=== PATIENT | male | born 1975 | race Caucasian/White ===

== ENCOUNTER 2017-12-05 08:27 | Observation (INO) | payer OTHER ==
[2017-12-05 08:29] VITALS: BMI 27.4
[2017-12-05] MEDS ORDERED: Sodium Chloride 0.9% 1,000 ML IV STA (08:55)
--- NOTE | 2017-12-05 08:55 | ED PDOC ---
HPI: Chest Pain Time Seen by Provider: 12/05/17 08:32 Chief Complaint (Nursing): Chest Pain History Per: Patient Onset/Duration Of Symptoms: Days (1) Current Symptoms Are (Timing): Still Present Severity: Mild Pain Scale Rating Of: 2 Quality: Aching Modifying Factors: None Exacerbating Factors: None Additional Complaint(s): Chest pain assoc with cocaine and ETOH ingestion. Has been drinking and using drugs x 4 days. Denies syncope or SOB Past Medical History Vital Signs: Last Vital Signs Temp 98.8 F 12/05/17 08:29 Pulse 93 H 12/05/17 08:29 Resp 16 12/05/17 08:29 BP 137/92 H 12/05/17 08:52 Pulse Ox 98 12/05/17 08:55 - Medical History PMH: No Chronic Diseases - Family History Family History: States: Unknown Family Hx - Allergies Allergies/Adverse Reactions: Allergies Allergy/AdvReac Type Severity Reaction Status Date / Time Unobtainable Allergy Verified 12/05/17 08:38 Review of Systems ROS Statement: Except As Marked, All Systems Reviewed And Found Negative Cardiovascular: Positive for: Chest Pain Physical Exam - Reviewed Nursing Documentation Reviewed: Yes Vital Signs Reviewed: Yes - Physical Exam Appears: Positive for: Non-toxic, No Acute Distress Head Exam: Positive for: ATRAUMATIC, NORMAL INSPECTION, NORMOCEPHALIC Skin: Positive for: Normal Color, Warm, DRY Eye Exam: Positive for: EOMI, Normal appearance, PERRL ENT: Positive for: Normal ENT Inspection Neck: Positive for: Normal, Painless ROM Cardiovascular/Chest: Positive for: Regular Rate, Rhythm Respiratory: Positive for: CNT, Normal Breath Sounds Gastrointestinal/Abdominal: Positive for: Normal Exam, Bowel Sounds, Soft Back: Positive for: Normal Inspection Extremity: Positive for: Normal ROM Neurologic/Psych: Positive for: Alert, Oriented - Laboratory Results Result Diagrams: 12/05/17 09:21 12/05/17 09:21 - ECG O2 Sat by Pulse Oximetry: 98 Disposition - Clinical Impression Clinical Impression: Chest pain, Cocaine abuse - Patient ED Disposition Is Patient to be Admitted: Yes - Disposition Disposition Time: 10:24 Condition: FAIR Forms: [facility] (Lao) - Pt Status Changed To: Hospital Disposition Of: Observation - POA Present On Arrival: None
[2017-12-05 09:29] LABS: BASO # 0.1 K/uL (0.0-0.2); BASO % 0.9 % (0.0-2.0); EOS # 0.1 K/uL (0.0-0.7); EOS % 0.9 % (0.0-4.0); LYMPH # 1.8 K/uL (1.0-4.3); LYMPH % 31.1 % (20.0-40.0); MEAN CELL VOLUME 85.3 fl (80.0-94.0); MEAN CORPUSCULAR HEMOGLOBIN 29.4 pg (27.0-31.0); MEAN CORPUSCULAR HGB CONC 34.4 g/dL (33.0-37.0); MEAN PLATELET VOLUME 8.5 fl (7.2-11.7); MONO # 0.3 K/uL (0.0-0.8); MONO % 5.7 % (0.0-10.0); NEUT # 3.5 K/uL (1.8-7.0); NEUT % 61.4 % (50.0-75.0); NRBC % 0.1 % (0.0-0.0); RBC 4.42 Mil/uL (4.40-5.90); RED CELL DISTRIBUTION WIDTH 15.2 % (11.5-14.5); WHITE BLOOD COUNT 5.8 K/uL (4.8-10.8)
[2017-12-05 09:40] LABS: ALBUMIN 4.6 g/dL (3.5-5.0); ALT/SGPT 117 U/L (21-72); AST/SGOT 95 U/L (17-59); BLOOD UREA NITROGEN 15 mg/dl (9-20); CALCIUM 8.9 mg/dL (8.4-10.2); GFR AFRICAN-AMERICAN > 60; GFR NON-AFRICAN AMERICAN > 60
[2017-12-05 09:43] LABS: ALB/GLOB RATIO 1.2 (1.0-2.1)
[2017-12-05 09:50] LABS: BARBITURATES, UR NEGATIVE (NEGATIVE); BENZODIAZEPINES, UR NEGATIVE (NEGATIVE); OPIATES, UR NEGATIVE (NEGATIVE); PHENCYCLIDINE, UR NEGATIVE (NEGATIVE)
--- NOTE | 2017-12-05 10:32 | RAD ---
HISTORY: chest pain COMPARISON: No prior. TECHNIQUE: Chest PA and lateral FINDINGS: LUNGS: No active pulmonary disease. PLEURA: No significant pleural effusion identified. No pneumothorax apparent. CARDIOVASCULAR: Normal. OSSEOUS STRUCTURES: No significant abnormalities. VISUALIZED UPPER ABDOMEN: Normal. OTHER FINDINGS: None. IMPRESSION: No active disease.
--- NOTE | 2017-12-05 11:18 | CP.PCM.HP ---
History of Present Illness - History of Present Illness History of Present Illness: CC: CHEST PAIN HPI: 42 year old male no known past medical history, admitting to one year of consistent ETOH and Cocaine abuse presents to the ER today after a 4 day "goldsmith " of constant drinking and cocaine use, and subsequently developing moderate worsening non radiating chest pain. Patient admits to being depressed and wishes to stop drinking and using cocaine. He currently has no thoughts of harming himself or anyone around him. No acute ST T wave changes on EKG, troponin neg x1. UDS + cocaine, ETOH 49. Patient also complained of reflux. HD stable, NAD. ROS: Per HPI, all other systems reviewed and neg PMH: denies PSH: denies FH: denies SH: admits to heavy ETOH and cocaine abuse NKDA Vitals Reviewed GEN: WDWN, ALERT, COOPERATIVE HEENT: NCAT, PERRL, EOMI HEART: RRR, +S1S2, NO MRG LUNG: CTAB, NO WRR ABD: SOFT, NT, ND, NO HSM, NO MASSES EXT: NORMAL PEDAL PULSES, GOOD CAPILLARY REFILL NEURO: AAOX3, STRENGTH EQUAL BILATERAL UPPER AND LOWER EXTREMITIES SKIN: WARM, DRY PSYCH: NORMAL MOOD, NORMAL AFFECT LABS Most Recent Lab Values WBC 5.8 K/uL (4.8-10.8) 12/05/17 09:21 RBC 4.42 Mil/uL (4.40-5.90) 12/05/17 09:21 Hgb 13.0 g/dL (12.0-18.0) 12/05/17 09:21 Hct 37.7 % (35.0-51.0) 12/05/17 09:21 MCV 85.3 fl (80.0-94.0) 12/05/17 09:21 MCH 29.4 pg (27.0-31.0) 12/05/17 09:21 MCHC 34.4 g/dL (33.0-37.0) 12/05/17 09:21 RDW 15.2 % (11.5-14.5) H 12/05/17 09:21 Plt Count 225 K/uL (130-400) 12/05/17 09:21 MPV 8.5 fl (7.2-11.7) 12/05/17 09:21 Neut % (Auto) 61.4 % (50.0-75.0) 12/05/17 09:21 Lymph % (Auto) 31.1 % (20.0-40.0) 12/05/17 09:21 [place] % (Auto) 5.7 % (0.0-10.0) 12/05/17 09:21 Eos % (Auto) 0.9 % (0.0-4.0) 12/05/17 09:21 Baso % (Auto) 0.9 % (0.0-2.0) 12/05/17 09:21 Neut # 3.5 K/uL (1.8-7.0) 12/05/17 09:21 Lymph # 1.8 K/uL (1.0-4.3) 12/05/17 09:21 [place] # 0.3 K/uL (0.0-0.8) 12/05/17 09:21 Eos # 0.1 K/uL (0.0-0.7) 12/05/17 09:21 Baso # 0.1 K/uL (0.0-0.2) 12/05/17 09:21 Sodium 137 mmol/l (132-148) 12/05/17 09:21 Potassium 4.1 MMOL/L (3.6-5.0) 12/05/17 09:21 Chloride 97 mmol/L (98-107) L 12/05/17 09:21 Carbon Dioxide 24 mmol/L (22-30) 12/05/17 09:21 Anion Gap 20 (10-20) 12/05/17 09:21 BUN 15 mg/dl (9-20) 12/05/17 09:21 Creatinine 0.8 mg/dl (0.8-1.5) 12/05/17 09:21 Est GFR ( Amer) > 60 12/05/17 09:21 Est GFR (Non-Af Amer) > 60 12/05/17 09:21 Random Glucose 100 mg/dL (75-110) 12/05/17 09:21 Calcium 8.9 mg/dL (8.4-10.2) 12/05/17 09:21 Total Bilirubin 0.4 mg/dl (0.2-1.3) 01/16/18 09:21 AST 95 U/L (17-59) H 12/05/17 09:21 ALT 117 U/L (21-72) H 12/05/17 09:21 Alkaline Phosphatase 68 U/L (38-126) 12/05/17 09:21 Troponin I 0.0150 ng/mL (0.00-0.120) 12/05/17 09:21 Total Protein 8.5 G/DL (6.3-8.2) H 12/05/17 09:21 Albumin 4.6 g/dL (3.5-5.0) 12/05/17 09:21 Globulin 4.0 gm/dL (2.2-3.9) H 12/05/17 09:21 Albumin/Globulin Ratio 1.2 (1.0-2.1) 12/05/17 09:21 Urine Opiates Screen Negative (NEGATIVE) 12/05/17 09:17 Urine Methadone Screen Negative (NEGATIVE) 12/05/17 09:17 Ur Barbiturates Screen Negative (NEGATIVE) 12/05/17 09:17 Ur Phencyclidine Scrn Negative (NEGATIVE) 12/05/17 09:17 Ur Amphetamines Screen Negative (NEGATIVE) 12/05/17 09:17 U Benzodiazepines Scrn Negative (NEGATIVE) 12/05/17 09:17 U Oth Cocaine Metabols Positive (NEGATIVE) H 12/05/17 09:17 U Cannabinoids Screen Negative (NEGATIVE) 12/05/17 09:17 Alcohol, Quantitative 49 mg/dl (0-10) H 12/05/17 09:21 IMAGING STUDIES EKG NSR rate 94 QTc 452, no acute ST T wave changes, no evidence of acute ischemia or infarct MEDICATIONS Pantoprazole [Protonix EC Tab] 40 mg PO DAILY chlordiazePOXIDE [Librium] 10 mg PO Q8 PRN Aspirin [Aspirin Chewable] 81 mg PO DAILY Atorvastatin [Lipitor] 20 mg PO DAILY Enoxaparin [Lovenox] 40 mg SC DAILY ASSESSMENT AND PLAN 42 year old male no known past medical history, admitting to one year of consistent ETOH and Cocaine abuse presents to the ER today after a 4 day "goldsmith " of constant drinking and cocaine use, and subsequently developing moderate worsening non radiating chest pain. Patient admits to being depressed and wishes to stop drinking and using cocaine. He currently has no thoughts of harming himself or anyone around him. No acute ST T wave changes on EKG, troponin neg x1. UDS + cocaine, ETOH 49. Pt also complains of reflux. HD stable , NAD. 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 cont ASA, statin AVOID beta blockade 2/2 cocaine use QTc prolongation QTc 452 avoid QT prolongation agents ETOH ABUSE COCAINE ABUSE POLYSUBSTANCE ABUSE Librium 10 mg Q8 HOURS PRN withdrawal sx Folic acid and Thiamine daily MVI daily Outpatient Psychiatry referral upon discharge to [facility] REFLUX SYMPTOMS initiate Protonix daily for 2 weeks to complete course of PPI VTE ppx Lovenox Present on Admission - Present on Admission Any Indicators Present on Admission: No Past Patient History - Past Social History Smoking Status: Never Smoked - PSYCHIATRIC Hx Substance Use: Yes - SURGICAL HISTORY Hx Surgeries: No Meds Allergies/Adverse Reactions: Allergies Allergy/AdvReac Type Severity Reaction Status Date / Time Unobtainable Allergy Verified 12/05/17 08:38 Results - Vital Signs Recent Vital Signs: Last Vital Signs Temp 98 F 12/05/17 10:40 Pulse 78 12/05/17 10:40 Resp 18 12/05/17 10:40 BP 137/92 H 12/05/17 10:40 Pulse Ox 100 12/05/17 10:40 - Labs Result Diagrams: 12/05/17 09:21 12/05/17 09:21 Labs: Laboratory Results - last 24 hr 12/05/17 12/05/17 12/05/17 09:17 09:21 09:21 WBC 5.8 RBC 4.42 Hgb 13.0 Hct 37.7 MCV 85.3 MCH 29.4 MCHC 34.4 RDW 15.2 H Plt Count 225 MPV 8.5 Neut % (Auto) 61.4 Lymph % (Auto) 31.1 [place] % (Auto) 5.7 Eos % (Auto) 0.9 Baso % (Auto) 0.9 Neut # 3.5 Lymph # 1.8 [place] # 0.3 Eos # 0.1 Baso # 0.1 Sodium 137 Potassium 4.1 Chloride 97 L Carbon Dioxide 24 Anion Gap 20 BUN 15 Creatinine 0.8 Est GFR ( Amer) > 60 Est GFR (Non-Af Amer) > 60 Random Glucose 100 Calcium 8.9 Total Bilirubin 0.4 AST 95 H ALT 117 H Alkaline Phosphatase 68 Troponin I 0.0150 Total Protein 8.5 H Albumin 4.6 Globulin 4.0 H Albumin/Globulin Ratio 1.2 Urine Opiates Screen Negative Urine Methadone Screen Negative Ur Barbiturates Screen Negative Ur Phencyclidine Scrn Negative Ur Amphetamines Screen Negative U Benzodiazepines Scrn Negative U Oth Cocaine Metabols Positive H U Cannabinoids Screen Negative Alcohol, Quantitative 49 H
[2017-12-05] MEDS ORDERED: Pantoprazole 40 mg EC Tab PO ONE (12:21)
[2017-12-05] MEDS: Pantoprazole 40 mg EC Tab PO SCH (12:22)
[2017-12-05] MEDS ORDERED: Pneumococcal 23-Valent Vaccine IM ONE (20:07)
[2017-12-05] MEDS ORDERED: Influenza Vaccine 18yr & older 0.5 ML/45 MCG SYR IM ONE (20:07)
--- NOTE | 2017-12-05 21:37 | CARD ---
APPROVED REPORT EKG Measurement Heart [id number] NC 124P29 [id number] <Conclusion> Normal sinus rhythm with sinus arrhythmia Normal ECG
[2017-12-06 08:20] VITALS: BP 146/94; PULSE 73; RESP 20; TEMP 97.3; O2SAT 98
[2017-12-06] MEDS ORDERED: Multivitamin With Minerals Tab PO SCH (09:00)
[2017-12-06] MEDS ORDERED: Enoxaparin 40 mg Syringe SC SCH (09:00)
[2017-12-06] MEDS ORDERED: Omega-3-Acid Ethyl Esters 1 GM Cap PO SCH (09:00)
[2017-12-06] MEDS: Pantoprazole 40 mg EC Tab PO SCH (09:02)
--- NOTE | 2017-12-06 10:18 | CP.PCM.DIS ---
Provider - Provider Date of Admission: 12/05/17 10:25 Attending physician: Courtney Valdes DO Time Spent in preparation of Discharge (in minutes): 25 Diagnosis - Discharge Diagnosis (1) Chest pain Status: Resolved (2) Cocaine abuse Status: Acute Hospital Course - Lab Results Lab Results: Most Recent Lab Values WBC 5.8 K/uL (4.8-10.8) 12/05/17 09:21 RBC 4.42 Mil/uL (4.40-5.90) 12/05/17 09:21 Hgb 13.0 g/dL (12.0-18.0) 12/05/17 09:21 Hct 37.7 % (35.0-51.0) 12/05/17 09:21 MCV 85.3 fl (80.0-94.0) 12/05/17 09:21 MCH 29.4 pg (27.0-31.0) 12/05/17 09:21 MCHC 34.4 g/dL (33.0-37.0) 12/05/17 09:21 RDW 15.2 % (11.5-14.5) H 12/05/17 09:21 Plt Count 225 K/uL (130-400) 12/05/17 09:21 MPV 8.5 fl (7.2-11.7) 12/05/17 09:21 Neut % (Auto) 61.4 % (50.0-75.0) 12/05/17 09:21 Lymph % (Auto) 31.1 % (20.0-40.0) 12/05/17 09:21 [place] % (Auto) 5.7 % (0.0-10.0) 12/05/17 09:21 Eos % (Auto) 0.9 % (0.0-4.0) 12/05/17 09:21 Baso % (Auto) 0.9 % (0.0-2.0) 12/05/17 09:21 Neut # 3.5 K/uL (1.8-7.0) 12/05/17 09:21 Lymph # 1.8 K/uL (1.0-4.3) 12/05/17 09:21 [place] # 0.3 K/uL (0.0-0.8) 12/05/17 09:21 Eos # 0.1 K/uL (0.0-0.7) 12/05/17 09:21 Baso # 0.1 K/uL (0.0-0.2) 12/05/17 09:21 Sodium 137 mmol/l (132-148) 12/05/17 09:21 Potassium 4.1 MMOL/L (3.6-5.0) 12/05/17 09:21 Chloride 97 mmol/L (98-107) L 12/05/17 09:21 Carbon Dioxide 24 mmol/L (22-30) 12/05/17 09:21 Anion Gap 20 (10-20) 12/05/17 09:21 BUN 15 mg/dl (9-20) 12/05/17 09:21 Creatinine 0.8 mg/dl (0.8-1.5) 12/05/17 09:21 Est GFR ( Amer) > 60 12/05/17 09:21 Est GFR (Non-Af Amer) > 60 12/05/17 09:21 Random Glucose 100 mg/dL (75-110) 12/05/17 09:21 Calcium 8.9 mg/dL (8.4-10.2) 12/05/17 09:21 Total Bilirubin 0.4 mg/dl (0.2-1.3) 12/05/17 09:21 AST 95 U/L (17-59) H 12/05/17 09:21 ALT 117 U/L (21-72) H 12/05/17 09:21 Alkaline Phosphatase 68 U/L (38-126) 12/05/17 09:21 Troponin I < 0.0120 ng/mL (0.00-0.120) 12/06/17 04:20 Total Protein 8.5 G/DL (6.3-8.2) H 12/05/17 09:21 Albumin 4.6 g/dL (3.5-5.0) 12/05/17 09:21 Globulin 4.0 gm/dL (2.2-3.9) H 12/05/17 09:21 Albumin/Globulin Ratio 1.2 (1.0-2.1) 12/05/17 09:21 Triglycerides 628 mg/DL (0-149) H 12/06/17 04:20 Cholesterol 190 mg/dL (0-199) 12/06/17 04:20 LDL Cholesterol Direct 67 mg/dL (0-129) 12/06/17 04:20 HDL Cholesterol 31 MG/DL (30-70) 12/06/17 04:20 TSH 3rd Generation 3.25 mIU/ML (0.46-4.68) 12/06/17 04:20 Urine Opiates Screen Negative (NEGATIVE) 12/05/17 09:17 Urine Methadone Screen Negative (NEGATIVE) 12/05/17 09:17 Ur Barbiturates Screen Negative (NEGATIVE) 12/05/17 09:17 Ur Phencyclidine Scrn Negative (NEGATIVE) 12/05/17 09:17 Ur Amphetamines Screen Negative (NEGATIVE) 12/05/17 09:17 U Benzodiazepines Scrn Negative (NEGATIVE) 12/05/17 09:17 U Oth Cocaine Metabols Positive (NEGATIVE) H 12/05/17 09:17 U Cannabinoids Screen Negative (NEGATIVE) 12/05/17 09:17 Alcohol, Quantitative 49 mg/dl (0-10) H 12/05/17 09:21 - Hospital Course Hospital Course: 42 year old male with no known PMH aside from alcohol and cocaine abuse admitted because of chest pain. There was no acute EKG changes and 3 sets of Troponins were negative. Patient was given 81mg of ASA and started on Fenofibrate and [place] 3 because of elevated Triglycerides. His chest pain has been relieved and patient was discharged in stable condition. Discharge Exam - Head Exam Head Exam: ATRAUMATIC, NORMAL INSPECTION, NORMOCEPHALIC - Eye Exam Eye Exam: Normal appearance - ENT Exam ENT Exam: Mucous Membranes Moist - Neck Exam Neck exam: Normal Inspection - Respiratory Exam Respiratory Exam: NORMAL BREATHING PATTERN. absent: Rales, Rhonchi, Wheezes - Cardiovascular Exam Cardiovascular Exam: REGULAR RHYTHM - GI/Abdominal Exam GI & Abdominal Exam: Soft. absent: Tenderness - Rectal Exam Rectal Exam: Deferred - Extremities Exam Extremities exam: normal inspection - Back Exam Back exam: absent: tenderness - Neurological Exam Neurological exam: Alert, Oriented x3 - Psychiatric Exam Psychiatric exam: Normal Affect - Skin Skin Exam: Dry, Intact Discharge Plan - Discharge Medications Prescriptions: Fenofibrate Nanocrystallized [Tricor] 48 mg PO DAILY #30 tablet [id number] Ethyl Esters 1 GM [Lovaza] 2 gm PO BID #60 sgl - Follow Up Plan Condition: FAIR Disposition: HOME/ ROUTINE Additional Instructions: follow up in [place]
--- NOTE | 2017-12-06 11:08 | CP.PCM.CON ---
History of Present Illness - History of Present Illness History of Present Illness: 42 year old male no known past medical history, admitting to one year of consistent ETOH and Cocaine abuse presents to the ER today after a 4 day "goldsmith" of constant drinking and cocaine use, and subsequently developing non radiating chest pain. Denies chest pain at present Troponin: neg EKG: normal Past Patient History - Past Social History Smoking Status: Current Some Days Smoker - MUSCULOSKELETAL/RHEUMATOLOGICAL Hx Falls: No - PSYCHIATRIC Hx Substance Use: Yes - SURGICAL HISTORY Hx Surgeries: No Meds Home Medications: Home Medication List Medication Instructions Recorded Confirmed Type Aspirin [Aspirin Chewable] 81 mg PO DAILY chew 12/06/17 Rx Fenofibrate Nanocrystallized 48 mg PO DAILY #30 tablet 12/06/17 Rx [Tricor] Fenofibrate [Tricor] 48 mg PO DAILY tab 12/06/17 Rx Multimineral/Multivitamin 1 tab PO DAILY tab 12/06/17 Rx [Therapeutic-M Tab] Vialw-5-Xqpg Ethyl Esters 1 GM 2 gm PO BID #60 sgl 12/06/17 Rx [Lovaza] Allergies/Adverse Reactions: Allergies Allergy/AdvReac Type Severity Reaction Status Date / Time Unobtainable Allergy Verified 12/05/17 08:38 - Medications Medications: Current Medications Aspirin (Aspirin Chewable) 81 mg PO DAILY [facility] Last Admin: 12/06/17 09:02 Dose: 81 mg Atorvastatin Calcium (Lipitor) 20 mg PO DAILY [facility] Last Admin: 12/06/17 09:03 Dose: 20 mg Chlordiazepoxide (Librium) 10 mg PO Q8 PRN PRN Reason: WITHDRAWAL SYMPTOMS Last Admin: 12/05/17 13:16 Dose: 10 mg Enoxaparin Sodium (Lovenox) 40 mg SC DAILY [facility] PRN Reason: Protocol Last Admin: 12/06/17 09:02 Dose: 40 mg Fenofibrate (Tricor) 48 mg PO DAILY [facility] Last Admin: 12/06/17 10:48 Dose: 48 mg Folic Acid (Folic Acid) 1 mg PO DAILY [facility] Last Admin: 12/06/17 09:02 Dose: 1 mg Lisinopril (Zestril) 10 mg PO DAILY [facility] Last Admin: 12/06/17 09:02 Dose: 10 mg Multivitamins/Minerals (Therapeutic-M Tab) 1 tab PO DAILY [facility] Last Admin: 12/06/17 09:02 Dose: 1 tab Tizwr-1-Kmhj Ethyl Esters (Lovaza) 2 gm PO BID [facility] Last Admin: 12/06/17 10:48 Dose: 2 gm Pantoprazole Sodium (Protonix Ec Tab) 40 mg PO DAILY [facility] Last Admin: 12/06/17 09:02 Dose: 40 mg Thiamine HCl (Vitamin B1 Tab) 100 mg PO DAILY [facility] Last Admin: 12/06/17 09:02 Dose: 100 mg Physical Exam - Respiratory Exam Respiratory Exam: NORMAL BREATHING PATTERN - Cardiovascular Exam Cardiovascular Exam: REGULAR RHYTHM Results - Vital Signs Recent Vital Signs: Last Vital Signs Temp 97.3 F L 12/06/17 08:18 Pulse 73 12/06/17 09:02 Resp 20 12/06/17 08:18 BP 146/94 H 12/06/17 09:02 Pulse Ox 98 12/06/17 08:18 - Labs Result Diagrams: 12/05/17 09:21 12/05/17 09:21 Labs: Laboratory Results - last 24 hr 12/05/17 12/05/17 12/06/17 20:00 20:58 04:20 Troponin I 0.0120 < 0.0120 Triglycerides 628 H Cholesterol 190 LDL Cholesterol Direct 67 HDL Cholesterol 31 TSH 3rd Generation 3.25 12/06/17 04:20 Troponin I < 0.0120 Triglycerides Cholesterol LDL Cholesterol Direct HDL Cholesterol TSH 3rd Generation Assessment & Plan (1) Cocaine abuse Status: Acute (2) Chest pain Assessment and Plan: non cardiac chest pain Status: Resolved
== END 2017-12-06 15:07 | disposition home or self-care (01) ==
LOC: H.ER 08:27 → H.ERHOLD 10:25 → H.TEL 12:40
PROVIDERS: ADMIT Student in an Organized Health Care Education/Training Program; ATTEND Student in an Organized Health Care Education/Training Program
DX: R07.89 Other chest pain (principal); F14.10 Cocaine abuse, uncomplicated; I45.81 Long QT syndrome; K21.9 Gastro-esophageal reflux disease without esophagitis; Y90.2 Blood alcohol level of 40-59 mg/100 ml; F17.200 Nicotine dependence, unspecified, uncomplicated; E78.1 Pure hyperglyceridemia; F10.10 Alcohol abuse, uncomplicated; Z23 Encounter for immunization
CPT/HCPCS: 36415; 71046; 80053; 80061; 80320; 80324; 80345; 80346; 80349; 80353; 80358; 80361; 83992; 84443; 84484; 85025; 90471; 90472; 90732; 93005; 99285; G0378; J1650; J7040; Q2035

== ENCOUNTER 2018-07-03 20:27 | Observation (INO) | payer MEDICAID, SELFPAY ==
[2018-07-03] MEDS ORDERED: Multivitamin (MVI) 10 ML, Thiamine 100 MG, Folic Acid 1 MG in Sodium Chloride 0.9% 1,00... IV ONE (20:52)
[2018-07-03] MEDS ORDERED: Sodium Chloride 0.9% 1,000 ML IV STA ×2 (20:54→23:25)
--- NOTE | 2018-07-03 21:04 | ED PDOC ---
HPI: Altered Mental Status Time Seen by Provider: 07/03/18 20:38 Chief Complaint (Nursing): Altered Mental Status Chief Complaint (Provider): altered mental status History Per: Patient, Family History/Exam Limitations: None Onset/Duration Of Symptoms: Days (2) Current Symptoms Are (Timing): Still Present Exacerbating Factor(s): Drug Use, Alcohol Use Additional Complaint(s): 43 y/o male brought in by EMS with mother at bedside for evaluation of altered mental status x 2 days. Mother states patient has been drinking every day for 2 weeks straight, and also has been using cocaine. Mother states patient has not been sleeping for the last few days due to the cocaine use. Mother states as of yesterday patient was not as active as his usual self when intoxicated, and was not recognizing people he knows. Patient intoxicated, HPI slightly limited due to current state. Past Medical History Reviewed: Historical Data, Nursing Documentation, Vital Signs Vital Signs: Last Vital Signs Temp 97.7 F 07/03/18 20:28 Pulse 144 H 07/03/18 20:28 Resp 16 07/03/18 20:28 BP 154/103 H 07/03/18 20:28 Pulse Ox 100 07/03/18 20:28 - Medical History PMH: No Chronic Diseases - Surgical History Surgical History: No Surg Hx - Family History Family History: States: No Known Family Hx - Living Arrangements Living Arrangements: With Family - Social History Current smoker - smoking cessation education provided: No Alcohol: > 2 Drinks/Day Drugs: Cocaine - Home Medications Home Medications: Ambulatory Orders Medication Instructions Recorded Aspirin [Aspirin Chewable] 81 mg PO DAILY chew 12/06/17 Fenofibrate Nanocrystallized 48 mg PO DAILY #30 tablet 12/06/17 [Tricor] Fenofibrate [Tricor] 48 mg PO DAILY tab 12/06/17 Multimineral/Multivitamin 1 tab PO DAILY tab 12/06/17 [Therapeutic-M Tab] [place]-2-Mwvv Ethyl Esters 1 GM 2 gm PO BID #60 sgl 12/06/17 [Lovaza] Unobtainable 07/04/18 - Allergies Allergies/Adverse Reactions: Allergies Allergy/AdvReac Type Severity Reaction Status Date / Time Unobtainable Allergy Verified 12/05/17 08:38 Review of Systems ROS Statement: Except As Marked, All Systems Reviewed And Found Negative Neurological: Positive for: Altered Mental Status Physical Exam - Reviewed Nursing Documentation Reviewed: Yes Vital Signs Reviewed: Yes - Physical Exam Appears: Positive for: Well, Non-toxic, No Acute Distress Head Exam: Positive for: ATRAUMATIC, NORMAL INSPECTION, NORMOCEPHALIC Skin: Positive for: Normal Color Eye Exam: Positive for: Normal appearance, EOMI, PERRL, Conjunctival injection ( b/l) ENT: Positive for: Normal ENT Inspection Cardiovascular/Chest: Positive for: Regular Rate, Rhythm Respiratory: Positive for: Normal Breath Sounds Gastrointestinal/Abdominal: Positive for: Normal Exam Back: Positive for: Normal Inspection Extremity: Positive for: Normal ROM Neurologic/Psych: Positive for: Alert, Oriented (x2) - Laboratory Results Result Diagrams: 07/03/18 21:42 07/04/18 07:37 - ECG ECG: Positive for: Viewed By Me (reviewed by ED attending) ECG Rhythm: Positive for: Sinus Tachycardia O2 Sat by Pulse Oximetry: 100 - Radiology X-Ray: Viewed By Me X-Ray Interpretation: Cardiomegaly - Progress ED Course And Treament: labs, urine, EKG, CT head 22:00 Patient agitated, attempting to remove IV. Security at bedside, Ativan IV given EXAM: CT Head Without Intravenous Contrast CLINICAL HISTORY: 43 years old, male; Signs and symptoms; Altered mental status/memory loss; Other : Substance abuse; Additional info: AMS, substance abuse TECHNIQUE: Axial computed tomography images of the head/brain without intravenous contrast. All CT scans at this facility use at least one of these dose optimization techniques: automated exposure control; mA and/or kV adjustment per patient size (includes targeted exams where dose is matched to clinical indication); or iterative reconstruction. Coronal and sagittal reformatted images were created and reviewed. COMPARISON: No relevant prior studies available. FINDINGS: Brain: Unremarkable. Ventricles: Unremarkable. Bones/joints: Unremarkable. No acute fracture. Soft tissues: Unremarkable. Sinuses: Unremarkable as visualized. Mastoid air cells: Unremarkable as visualized. IMPRESSION: No acute intracranial pathology or traumatic injury. 23:30 Patient sleeping; vitals stable on monitor 07/04/18 1:30 Patient awake, again trying to get out of bed and remove IV/cardiac leads. Haldol IM given 3:00 Patient sleeping; vitals stable 5:00 Patient awake, HR elevated 125's and tremors noted Case discussed with Dr. Rodriguez, hospitalist on-call for placement in observation for alcohol withdrawals, dehydration, tachycardia Disposition - Clinical Impression Clinical Impression: Tachycardia, Alcohol withdrawal, Dehydration - Disposition Disposition Time: 05:00 Condition: FAIR
[2018-07-03 21:46] LABS: BASO # 0.1 K/uL (0.0-0.2); BASO % 0.8 % (0.0-2.0); EOS % 0.1 % (0.0-4.0); HEMOGLOBIN 13.5 g/dL (12.0-18.0); LYMPH # 1.3 K/uL (1.0-4.3); LYMPH % 20.2 % (20.0-40.0); MEAN CELL VOLUME 88.3 fl (80.0-94.0); MEAN CORPUSCULAR HEMOGLOBIN 30.5 pg (27.0-31.0); MEAN CORPUSCULAR HGB CONC 34.5 g/dL (33.0-37.0); MEAN PLATELET VOLUME 8.3 fl (7.2-11.7); MONO # 0.3 K/uL (0.0-0.8); MONO % 4.5 % (0.0-10.0); NEUT # 4.9 K/uL (1.8-7.0); NEUT % 74.4 % (50.0-75.0); RBC 4.43 Mil/uL (4.40-5.90); RED CELL DISTRIBUTION WIDTH 14.1 % (11.5-14.5); WHITE BLOOD COUNT 6.5 K/uL (4.8-10.8)
[2018-07-03 22:02] LABS: ALB/GLOB RATIO 1.2 (1.0-2.1); ALBUMIN 4.4 g/dL (3.5-5.0); ALT/SGPT 342 U/L (21-72); AST/SGOT 490 U/L (17-59); BLOOD UREA NITROGEN 17 mg/dl (9-20); CALCIUM 7.9 mg/dL (8.4-10.2); GFR AFRICAN-AMERICAN > 60; GFR NON-AFRICAN AMERICAN > 60
[2018-07-04 01:47] LABS: GRANULAR CAST 4 /lpf (0-1); URINE BACTERIA RARE (<OCC); URINE BILIRUBIN NEGATIVE (NEGATIVE); URINE BLOOD MODERATE (NEGATIVE); URINE CLARITY SLIGHTY-CLOUDY (Clear); URINE COLOR YELLOW (YELLOW); URINE GLUCOSE (UA) NEG (Normal); URINE LEUKOCYTE ESTERASE NEG Leu/uL (Negative); URINE PROTEIN >=500 mg/dL (NEGATIVE); URINE UROBILINOGEN 0.2-1.0 mg/dL (0.2-1.0)
[2018-07-04 01:55] LABS: BARBITURATES, UR NEGATIVE (NEGATIVE); BENZODIAZEPINES, UR NEGATIVE (NEGATIVE); OPIATES, UR NEGATIVE (NEGATIVE); PHENCYCLIDINE, UR NEGATIVE (NEGATIVE)
--- NOTE | 2018-07-04 05:38 | CP.PCM.HP ---
History of Present Illness - History of Present Illness History of Present Illness: PMD: None Chief Complaint: Altered Mental Status The Patient was seen and examined in the ED with no family member present HPI: The hx was obtained from the ED Physician some from the patient and after review of the Medical records. He is a 43 years old male with no significant past medical hx who was brought to the ED by his mother because he had not been sleeping for the last few days due to cocaine and has not been acting his usual self as when intoxicated, and not recognizing people that he knew. The patient had been drinking Alcohol daily for the past week. The patient confirms that he drinks Alcohol daily and uses cocaine. No headache, dizziness, nausea, vomits, chest pain nor palpitation. No abdominal pain. In the ED his Alcohol level was 416 and his heart rate is close to 100/min when asleep but increases to 140s when awake. PMH: No chronic disease PSH: Debridement of the feet and the right hand SH: Never Smokes; Uses Cocaine regularly; Drinks Alcohol Daily; Live with his family FH: States: No Known Family Hx Allergies: NKDA Medication: None Present on Admission - Present on Admission Any Indicators Present on Admission: No History of DVT/PE: No History of Uncontrolled Diabetes: No Urinary Catheter: No Decubitus Ulcer Present: No Review of Systems - Review of Systems Systems not reviewed;Unavailable: Intoxicated Review of Systems: Review of systems limited because the patient is intoxicated - EENT Additional comments: Tooth ache - Cardiovascular Cardiovascular: absent: Chest Pain - Respiratory Respiratory: absent: Dyspnea, Chest Congestion - Gastrointestinal Gastrointestinal: absent: Abdominal Pain, Diarrhea, Nausea, Vomiting - Genitourinary Genitourinary: absent: Dysuria Past Patient History - Past Medical History & Family History Past Medical History?: No - Past Social History Smoking Status: Never Smoked Chewing Tobacco Use: No Cigar Use: No Alcohol: > 2 Drinks/Day Drugs: Cocaine Home Situation {Lives}: With Family - CARDIAC Hx Cardiac Disorders: No - PULMONARY Hx Respiratory Disorders: No - NEUROLOGICAL Hx Neurological Disorder: No - HEENT Hx HEENT Problems: Yes Other/Comment: corneal abrasion 5 months ago - RENAL Hx Chronic Kidney Disease: No - ENDOCRINE/METABOLIC Hx Endocrine Disorders: No - HEMATOLOGICAL/ONCOLOGICAL Hx Blood Disorders: No - INTEGUMENTARY Hx Dermatological Problems: No - MUSCULOSKELETAL/RHEUMATOLOGICAL Hx Musculoskeletal Disorders: No - GASTROINTESTINAL Hx Gastrointestinal Disorders: No - GENITOURINARY/GYNECOLOGICAL Hx Genitourinary Disorders: No - PSYCHIATRIC Hx Psychophysiologic Disorder: No Hx Substance Use: Yes - SURGICAL HISTORY Hx Surgeries: Yes Other/Comment: debridement to feet and right hand - ANESTHESIA Hx Anesthesia: Yes Hx Anesthesia Reactions: No Meds Allergies/Adverse Reactions: Allergies Allergy/AdvReac Type Severity Reaction Status Date / Time No Known Allergies Allergy Verified 07/03/18 20:28 Physical Exam - Constitutional Appears: No Acute Distress - Head Exam Head Exam: ATRAUMATIC, NORMAL INSPECTION, NORMOCEPHALIC - Eye Exam Eye Exam: EOMI, Normal appearance Pupil Exam: NORMAL ACCOMODATION, PERRL - ENT Exam ENT Exam: Mucous Membranes Dry Additional comments: Missing tooth lower incisor. - Neck Exam Neck exam: Positive for: Full Rom, Normal Inspection. Negative for: Lymphadenopathy, Tenderness - Respiratory Exam Respiratory Exam: Clear to Auscultation Bilateral. absent: Rales, Rhonchi, Wheezes - Cardiovascular Exam Cardiovascular Exam: Tachycardia, +S1, +S2. absent: Gallop, JVD - GI/Abdominal Exam GI & Abdominal Exam: Normal Bowel Sounds, Soft. absent: Mass, Organomegaly, Tenderness - Rectal Exam Rectal Exam: Deferred - Extremities Exam Extremities exam: Negative for: calf tenderness, joint swelling Additional comments: Bruise to left ankle - Back Exam Back exam: NORMAL INSPECTION. absent: CVA tenderness (L), CVA tenderness (R) - Neurological Exam Neurological exam: Alert, CN II-XII Intact, Oriented x3, Reflexes Normal - Psychiatric Exam Psychiatric exam: Normal Affect, Normal Mood - Skin Skin Exam: Dry, Intact, Normal Color, Warm Results - Vital Signs Recent Vital Signs: Last Vital Signs Temp 98.5 F 07/04/18 05:27 Pulse 118 H 07/04/18 05:27 Resp 18 07/04/18 05:27 BP 127/90 07/04/18 04:04 Pulse Ox 100 07/04/18 05:27 - Labs Result Diagrams: 07/03/18 21:42 07/03/18 21:42 Labs: Laboratory Results - last 24 hr 07/03/18 07/03/18 07/03/18 20:37 21:42 21:42 WBC RBC Hgb Hct MCV MCH MCHC RDW Plt Count MPV Neut % (Auto) Lymph % (Auto) [place] % (Auto) Eos % (Auto) Baso % (Auto) Neut # (Auto) Lymph # (Auto) [place] # (Auto) Eos # (Auto) Baso # (Auto) Sodium 139 Potassium 3.8 Chloride 98 Carbon Dioxide 16 L Anion Gap 29 H BUN 17 Creatinine 0.7 L Est GFR ( Amer) > 60 Est GFR (Non-Af Amer) > 60 POC Glucose (mg/dL) 172 H Random Glucose 146 H Calcium 7.9 L Phosphorus 3.4 Magnesium 1.8 Total Bilirubin 0.8 AST 490 H ALT 342 H Alkaline Phosphatase 101 Ammonia 23 Total Protein 8.2 Albumin 4.4 Globulin 3.8 Albumin/Globulin Ratio 1.2 Urine Color Urine Clarity Urine pH Ur Specific [place] Urine Protein Urine Glucose (UA) Urine Ketones Urine Blood Urine Nitrate Urine Bilirubin Urine Urobilinogen Ur Leukocyte Esterase Urine RBC (Auto) Urine Microscopic WBC Urine Bacteria Hyaline Casts Granular Casts (Auto) Urine Opiates Screen Urine Methadone Screen Ur Barbiturates Screen Ur Phencyclidine Scrn Ur Amphetamines Screen U Benzodiazepines Scrn U Oth Cocaine Metabols U Cannabinoids Screen Alcohol, Quantitative 416 H* 07/03/18 07/04/18 07/04/18 21:42 01:16 01:16 WBC 6.5 RBC 4.43 Hgb 13.5 Hct 39.1 MCV 88.3 MCH 30.5 MCHC 34.5 RDW 14.1 Plt Count 189 MPV 8.3 Neut % (Auto) 74.4 Lymph % (Auto) 20.2 [place] % (Auto) 4.5 Eos % (Auto) 0.1 Baso % (Auto) 0.8 Neut # (Auto) 4.9 Lymph # (Auto) 1.3 [place] # (Auto) 0.3 Eos # (Auto) 0.0 Baso # (Auto) 0.1 Sodium Potassium Chloride Carbon Dioxide Anion Gap BUN Creatinine Est GFR ( Amer) Est GFR (Non-Af Amer) POC Glucose (mg/dL) Random Glucose Calcium Phosphorus Magnesium Total Bilirubin AST ALT Alkaline Phosphatase Ammonia Total Protein Albumin Globulin Albumin/Globulin Ratio Urine Color Yellow Urine Clarity Slighty-cloudy Urine pH 6.0 Ur Specific [place] 1.023 Urine Protein >=500 Urine Glucose (UA) Neg Urine Ketones 20 Urine Blood Moderate Urine Nitrate Negative Urine Bilirubin Negative Urine Urobilinogen 0.2-1.0 Ur Leukocyte Esterase Neg Urine RBC (Auto) < 1 Urine Microscopic WBC 1 Urine Bacteria Rare Hyaline Casts 3-5 H Granular Casts (Auto) 4 Urine Opiates Screen Negative Urine Methadone Screen Negative Ur Barbiturates Screen Negative Ur Phencyclidine Scrn Negative Ur Amphetamines Screen Negative U Benzodiazepines Scrn Negative U Oth Cocaine Metabols Negative U Cannabinoids Screen Negative Alcohol, Quantitative - Impressions Impression: Sinus Tachycardia 125/min - Imaging and Cardiology Chest x-ray Status: Image reviewed by me Additional comment: No Infiltrate CT scan - head Status: Image reviewed by me, Report reviewed by me Additional comment: EXAM: CT Head Without Intravenous Contrast FINDINGS: Brain: Unremarkable. Ventricles: Unremarkable. Bones/joints: Unremarkable. No acute fracture. Soft tissues: Unremarkable. Sinuses: Unremarkable as visualized. Mastoid air cells: Unremarkable as visualized. IMPRESSION: No acute intracranial pathology or traumatic injury. Assessment & Plan - Assessment and Plan (Free Text) Assessment: #. Alcohol Intoxication #. Tachycardia Plan: 43 years old male with no significant past medical hx who was brought to the ED by his mother because he had not been sleeping for the last few days due to cocaine and has not been acting his usual self as when intoxicated, and not recognizing people that he knew. The patient had been drinking Alcohol daily for the past week. In the ED his Alcohol level was 416 and his heart rate is close to 100/min when asleep but increases to 140s when awake. #. Alcohol Intoxication causing the Altered Mental Status as recognised by the family - Banana bag which includes Thiamine/Folic Acid and Multivitamin at 125mls/hr - Continue with IV Fluids NS at 125/hr - Thiamine - Folic Acid - Multivitamin #. Tachycardia most likely a sign of alcohol withdrawal - Observe in the Telemetry unit - [facility] protocol - Librium - Ativan Q 3Hrs for Agitation - Haldol For Delirium #. r/o Depression - Consult Psychiatry #. DVT Prophylaxis with Lovenox #. Code Status: Full - Date & Time Date: 07/04/18 Time: 05:38
[2018-07-04] MEDS ORDERED: Sodium Chloride 0.9% 1,000 ML IV SCH (06:15)
--- NOTE | 2018-07-04 07:37 | CP.PCM.CON ---
History of Present Illness - History of Present Illness History of Present Illness: Psychiatry consult note; History obtained from chart as patient is currently a poor historian due to AMS due to acute ETOH withdrawal Chief Complaint: Altered Mental Status HPI: 43 yo male w/ alcohol use disorder and cocaine use disorder, presented acutely intoxicated on ETOH (BAL 416) and using cocaine for 5 days. He reports that he feels anxious and depressed, but answers questions vaguely and can not elaborate further. He states that he only drinks 2-3 beers/day. When asked if he is hearing voices, he stated "yes", but could not elaborate further. Patient is a poor historian at this time and has difficult engaging in interview. He denies SI/HI. 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 FH: States: No Known Family Hx Allergies: NKDA Medication: None MSE: A + O x self, [facility] and June 2018, intermittent eye contact, speech slurred, mood- anxious, affect- constricted, poor I/J, thought process- non linear/disorganized at times; vaguely reports AH, but can not elaborate, unclear if he is truly experiencing AH or just saying "yes" to automotive service writer, poor impulse control; denies SI/HI Impression: 43 yo male presents w/ acute alcohol intoxication and currently in alcohol withdrawal w/ delirium -Cannot r/o depression or anxiety, but patient is a poor historian at this time and if mood symptoms are present, they are likely substance induced (cocaine and alcohol); would not recommend to start antidepressants at this time -Recommend to treat for ETOH withdrawal as per [facility] protocol -Can give Risperdal PRN if patient exhibits psychotic symptoms -Patient would benefit from substance abuse treatment when he is medically stable and has improved mental status; would recommend SW to refer him for substance abuse treatment if he is agreeable Past Patient History - Past Medical History & Family History Past Medical History?: No - Past Social History Smoking Status: Never Smoked Chewing Tobacco Use: No Cigar Use: No Alcohol: > 2 Drinks/Day Drugs: Cocaine Home Situation {Lives}: With Family - CARDIAC Hx Cardiac Disorders: No - PULMONARY Hx Respiratory Disorders: No - NEUROLOGICAL Hx Neurological Disorder: No - HEENT Hx HEENT Problems: Yes Other/Comment: corneal abrasion 5 months ago - RENAL Hx Chronic Kidney Disease: No - ENDOCRINE/METABOLIC Hx Endocrine Disorders: No - HEMATOLOGICAL/ONCOLOGICAL Hx Blood Disorders: No - INTEGUMENTARY Hx Dermatological Problems: No - MUSCULOSKELETAL/RHEUMATOLOGICAL Hx Musculoskeletal Disorders: No - GASTROINTESTINAL Hx Gastrointestinal Disorders: No - GENITOURINARY/GYNECOLOGICAL Hx Genitourinary Disorders: No - PSYCHIATRIC Hx Psychophysiologic Disorder: No Hx Substance Use: Yes - SURGICAL HISTORY Hx Surgeries: Yes Other/Comment: debridement to feet and right hand - ANESTHESIA Hx Anesthesia: Yes Hx Anesthesia Reactions: No Meds Allergies/Adverse Reactions: Allergies Allergy/AdvReac Type Severity Reaction Status Date / Time No Known Allergies Allergy Verified 07/03/18 20:28 - Medications Medications: Current Medications Chlordiazepoxide (Librium) 25 mg PO Q6 [facility] Enoxaparin Sodium (Lovenox) 40 mg SC DAILY [facility] PRN Reason: Protocol Folic Acid (Folic Acid) 1 mg PO DAILY [facility] Haloperidol Lactate (Haldol) 5 mg IM Q6 PRN PRN Reason: Symptoms of alcohol withdrawl Sodium Chloride (Sodium Chloride 0.9%) 1,000 mls @ 125 mls/hr IV .Q8H [facility] Stop: 07/04/18 14:14 Lorazepam (Ativan) 1 mg IVP Q3 [facility] Multivitamins/Minerals (Therapeutic-M Tab) 1 tab PO DAILY [facility] Thiamine HCl (Vitamin B1 Tab) 100 mg PO DAILY [facility] Results - Vital Signs Recent Vital Signs: Last Vital Signs Temp 98.5 F 07/04/18 06:42 Pulse 118 H 07/04/18 06:42 Resp 18 07/04/18 06:42 BP 149/92 H 07/04/18 06:42 Pulse Ox 98 07/04/18 06:42 - Labs Result Diagrams: 07/03/18 21:42 07/03/18 21:42 Labs: Laboratory Results - last 24 hr 07/03/18 07/03/18 07/03/18 20:37 21:42 21:42 WBC RBC Hgb Hct MCV MCH MCHC RDW Plt Count MPV Neut % (Auto) Lymph % (Auto) [place] % (Auto) Eos % (Auto) Baso % (Auto) Neut # (Auto) Lymph # (Auto) [place] # (Auto) Eos # (Auto) Baso # (Auto) Sodium 139 Potassium 3.8 Chloride 98 Carbon Dioxide 16 L Anion Gap 29 H BUN 17 Creatinine 0.7 L Est GFR ( Amer) > 60 Est GFR (Non-Af Amer) > 60 POC Glucose (mg/dL) 172 H Random Glucose 146 H Calcium 7.9 L Phosphorus 3.4 Magnesium 1.8 Total Bilirubin 0.8 AST 490 H ALT 342 H Alkaline Phosphatase 101 Ammonia 23 Total Protein 8.2 Albumin 4.4 Globulin 3.8 Albumin/Globulin Ratio 1.2 Urine Color Urine Clarity Urine pH Ur Specific [place] Urine Protein Urine Glucose (UA) Urine Ketones Urine Blood Urine Nitrate Urine Bilirubin Urine Urobilinogen Ur Leukocyte Esterase Urine RBC (Auto) Urine Microscopic WBC Urine Bacteria Hyaline Casts Granular Casts (Auto) Urine Opiates Screen Urine Methadone Screen Ur Barbiturates Screen Ur Phencyclidine Scrn Ur Amphetamines Screen U Benzodiazepines Scrn U Oth Cocaine Metabols U Cannabinoids Screen Alcohol, Quantitative 416 H* 07/03/18 07/04/18 07/04/18 21:42 01:16 01:16 WBC 6.5 RBC 4.43 Hgb 13.5 Hct 39.1 MCV 88.3 MCH 30.5 MCHC 34.5 RDW 14.1 Plt Count 189 MPV 8.3 Neut % (Auto) 74.4 Lymph % (Auto) 20.2 [place] % (Auto) 4.5 Eos % (Auto) 0.1 Baso % (Auto) 0.8 Neut # (Auto) 4.9 Lymph # (Auto) 1.3 [place] # (Auto) 0.3 Eos # (Auto) 0.0 Baso # (Auto) 0.1 Sodium Potassium Chloride Carbon Dioxide Anion Gap BUN Creatinine Est GFR ( Amer) Est GFR (Non-Af Amer) POC Glucose (mg/dL) Random Glucose Calcium Phosphorus Magnesium Total Bilirubin AST ALT Alkaline Phosphatase Ammonia Total Protein Albumin Globulin Albumin/Globulin Ratio Urine Color Yellow Urine Clarity Slighty-cloudy Urine pH 6.0 Ur Specific [place] 1.023 Urine Protein >=500 Urine Glucose (UA) Neg Urine Ketones 20 Urine Blood Moderate Urine Nitrate Negative Urine Bilirubin Negative Urine Urobilinogen 0.2-1.0 Ur Leukocyte Esterase Neg Urine RBC (Auto) < 1 Urine Microscopic WBC 1 Urine Bacteria Rare Hyaline Casts 3-5 H Granular Casts (Auto) 4 Urine Opiates Screen Negative Urine Methadone Screen Negative Ur Barbiturates Screen Negative Ur Phencyclidine Scrn Negative Ur Amphetamines Screen Negative U Benzodiazepines Scrn Negative U Oth Cocaine Metabols Negative U Cannabinoids Screen Negative Alcohol, Quantitative
--- NOTE | 2018-07-04 07:48 | CT ---
Date of service: 07/03/2018 PROCEDURE: CT HEAD WITHOUT CONTRAST. HISTORY: ams, substance abuse COMPARISON: None available. TECHNIQUE: Axial computed tomography images were obtained through the head/brain without intravenous contrast. Radiation dose: Total exam DLP = 875 mGy-cm. This CT exam was performed using one or more of the following dose reduction techniques: Automated exposure control, adjustment of the mA and/or kV according to patient size, and/or use of iterative reconstruction technique. FINDINGS: HEMORRHAGE: No intracranial hemorrhage. BRAIN: No mass effect or edema. No atrophy or chronic microvascular ischemic changes. VENTRICLES: Unremarkable. No hydrocephalus. CALVARIUM: Unremarkable. PARANASAL SINUSES: Unremarkable as visualized. No significant inflammatory changes. MASTOID AIR CELLS: Unremarkable as visualized. No inflammatory changes. OTHER FINDINGS: Soft tissue swelling overlying the posterior left parieto-occipital cranium. IMPRESSION: No acute intracranial abnormality. If symptoms persists, consider correlation with MRI. These findings were preliminarily reported at 11:08 p.m. on 07/03/[address] Yaron Julian from [facility].
--- NOTE | 2018-07-04 08:03 | RAD ---
Date of service: 07/04/2018 HISTORY: admit COMPARISON: No prior. FINDINGS: LUNGS: No consolidation. Shallow lung volumes PLEURA: No significant pleural effusion identified, no pneumothorax apparent. CARDIOVASCULAR: Cardiomegaly. Pulmonary venous congestion OSSEOUS STRUCTURES: No significant abnormalities. VISUALIZED UPPER ABDOMEN: Normal. OTHER FINDINGS: None. IMPRESSION: Cardiomegaly and mild pulmonary venous congestion -accentuated with shallow lung volumes
--- NOTE | 2018-07-04 08:29 | CARD ---
APPROVED REPORT Date of service: 07/03/2018 <Conclusion> Sinus tachycardia Otherwise normal ECG
[2018-07-04 08:34] LABS: ALB/GLOB RATIO 1.2 (1.0-2.1); ALBUMIN 3.7 g/dL (3.5-5.0); ALT/SGPT 262 U/L (21-72); AST/SGOT 358 U/L (17-59); BLOOD UREA NITROGEN 10 mg/dl (9-20); CALCIUM 6.8 mg/dL (8.4-10.2); GFR AFRICAN-AMERICAN > 60; GFR NON-AFRICAN AMERICAN > 60
[2018-07-04] MEDS: Enoxaparin 40 mg Syringe SC SCH (10:53)
[2018-07-04] MEDS: Multivitamin With Minerals Tab PO SCH (10:54)
[2018-07-04] MEDS ORDERED: Pneumococcal 23-Valent Vaccine IM ONE (15:16)
[2018-07-04] MEDS ORDERED: Calcium Gluconate 4.65 mEq/10 ml Inj IV ONE (17:12)
[2018-07-04] MEDS ORDERED: Calcium Gluconate 4.6 MEQ in Sodium Chloride 0.9% 100 ML IV ONE (17:30)
[2018-07-04] MEDS: Dextrose 5%/0.45% NS 1,000 ML IV SCH (18:58)
[2018-07-05] MEDS: Dextrose 5%/0.45% NS 1,000 ML IV SCH (04:11)
[2018-07-05 05:45] LABS: HEMOGLOBIN 11.2 g/dL (12.0-18.0); MEAN CELL VOLUME 87.1 fl (80.0-94.0); MEAN CORPUSCULAR HEMOGLOBIN 30.4 pg (27.0-31.0); MEAN CORPUSCULAR HGB CONC 34.9 g/dL (33.0-37.0); RBC 3.69 Mil/uL (4.40-5.90); RED CELL DISTRIBUTION WIDTH 13.9 % (11.5-14.5); WHITE BLOOD COUNT 3.9 K/uL (4.8-10.8)
[2018-07-05 06:25] LABS: ALB/GLOB RATIO 1.2 (1.0-2.1); ALBUMIN 3.6 g/dL (3.5-5.0); ALT/SGPT 224 U/L (21-72); AST/SGOT 329 U/L (17-59); BLOOD UREA NITROGEN 3 mg/dl (9-20); CALCIUM 7.8 mg/dL (8.4-10.2); GFR AFRICAN-AMERICAN > 60; GFR NON-AFRICAN AMERICAN > 60
[2018-07-05] MEDS ORDERED: Potassium Chloride 20 mEq/15 ml LIQ UD PO ONE (07:27)
[2018-07-05] MEDS ORDERED: Calcium Gluconate 4.65 mEq/10 ml Inj IV ONE (07:28)
[2018-07-05] MEDS ORDERED: Calcium Gluconate 4.6 MEQ in Sodium Chloride 0.9% 100 ML IV ONE (07:45)
[2018-07-05 08:15] VITALS: RESP 20; O2SAT 99
[2018-07-05] MEDS: Enoxaparin 40 mg Syringe SC SCH (08:55)
[2018-07-05] MEDS: Multivitamin With Minerals Tab PO SCH (08:56)
--- NOTE | 2018-07-05 09:33 | CP.PCM.PN ---
Subjective - Date & Time of Evaluation Date of Evaluation: 07/05/18 Time of Evaluation: 09:33 - Subjective Subjective: [id number] Patient seen at bedside this morning looks minorly lethargic, he states he is feeling well, slept well, currently on a 1:1 due to instability. Pt was brought in to ED last night due to AMS by his mother after 1 wk of an alcohol (8-12 drinks per day) and cocaine binge, JUAN FRANCISCO level was 416 on admin, now 171. AST 329/ ALT 224.This morning states he has a decreased appetite, urinating well and has had a bowel movement. He denies any nausea, vomiting, diarrhea, constipation, SOB, chest pain, fever, chills or night sweats. His Ativan was held switched to PRN. Librium was held as well due to sedation. Tachycardia resolved HR 91. - 20yr hx of alcohol abuse 2-3 drinks pd, cocaine use, Former smoker 20yr hx Objective - Vital Signs/Intake and Output Vital Signs (last 24 hours): Temp Pulse Resp BP Pulse Ox 98.7 F 91 H 20 134/86 99 07/05/18 08:00 07/05/18 08:00 07/05/18 08:00 07/05/18 08:00 07/05/18 08:00 - Medications Medications: Current Medications Chlordiazepoxide (Librium) 25 mg PO Q6 [facility] Last Admin: 07/05/18 04:10 Dose: 25 mg Enoxaparin Sodium (Lovenox) 40 mg SC DAILY [facility] PRN Reason: Protocol Last Admin: 07/05/18 08:55 Dose: 40 mg Folic Acid (Folic Acid) 1 mg PO DAILY [facility] Last Admin: 07/05/18 08:55 Dose: 1 mg Haloperidol Lactate (Haldol) 5 mg IM Q6 PRN PRN Reason: Symptoms of alcohol withdrawl Dextrose/Sodium Chloride (Dextrose 5%/0.45% Ns 1000 Ml) 1,000 mls @ 100 mls/hr IV .Q10H [facility] Stop: 07/05/18 17:18 Last Admin: 07/05/18 04:11 Dose: 100 mls/hr Lorazepam (Ativan) 1 mg IVP Q4 PRN PRN Reason: Agitation Multivitamins/Minerals (Therapeutic-M Tab) 1 tab PO DAILY [facility] Last Admin: 07/05/18 08:56 Dose: 1 tab Risperidone (Risperdal Tab) 0.5 mg PO Q12 PRN PRN Reason: Agitation Last Admin: 07/05/18 00:21 Dose: 0.5 mg Thiamine HCl (Vitamin B1 Tab) 100 mg PO DAILY [facility] Last Admin: 07/05/18 08:56 Dose: 100 mg - Labs Labs: 07/05/18 05:20 07/05/18 05:20 - Constitutional Appears: Well, Non-toxic, No Acute Distress (Lethargic) - Head Exam Head Exam: ATRAUMATIC, NORMAL INSPECTION, NORMOCEPHALIC - Eye Exam Eye Exam: Normal appearance - ENT Exam ENT Exam: Mucous Membranes Moist - Neck Exam Neck Exam: Full ROM - Respiratory Exam Respiratory Exam: Clear to Ausculation Bilateral, NORMAL BREATHING PATTERN - Cardiovascular Exam Cardiovascular Exam: REGULAR RHYTHM, RRR, +S1, +S2 - GI/Abdominal Exam GI & Abdominal Exam: Soft, Normal Bowel Sounds - Extremities Exam Extremities Exam: Full ROM, Normal Inspection - Neurological Exam Neurological Exam: Alert, Awake, Oriented x3 (Slight gait instability ) Assessment and Plan (1) Alcohol withdrawal Assessment & Plan: -Continue Thiamine, Folic acid and multivitamin repletion -Ativan and haldol PRN, Librium was held -Continue to monitor for withdrawl symptoms - If patient continues to do well will D/C today Status: Acute (2) Tachycardia Assessment & Plan: -Resolved continue to monitor any flucutations on telemetry -[facility] protocol -Ativan PRN Status: Acute (3) Substance abuse Assessment & Plan: -Referred to social work to help enroll in detox for substance abuse treatment, patient in agreement with plan. - Gave patient list of places in the area - Patient counselled on importance of penitentiary treatment and all concerns were addressed. Status: Acute (4) DVT prophylaxis Assessment & Plan: - Lovenox Status: Acute
[2018-07-05 12:18] VITALS: BP 142/96; PULSE 103; TEMP 98.3
--- NOTE | 2018-07-05 15:38 | CP.PCM.DIS ---
Provider - Provider Date of Admission: 07/04/18 05:01 Attending physician: Mark Rodriguez Primary care physician: None Consults: psychiatry consult Time Spent in preparation of Discharge (in minutes): 15 Hospital Course - Lab Results Lab Results: Most Recent Lab Values WBC 3.9 K/uL (4.8-10.8) L 07/05/18 05:20 RBC 3.69 Mil/uL (4.40-5.90) L 07/05/18 05:20 Hgb 11.2 g/dL (12.0-18.0) L D 07/05/18 05:20 Hct 32.1 % (35.0-51.0) L 07/05/18 05:20 MCV 87.1 fl (80.0-94.0) 07/05/18 05:20 MCH 30.4 pg (27.0-31.0) 07/05/18 05:20 MCHC 34.9 g/dL (33.0-37.0) 07/05/18 05:20 RDW 13.9 % (11.5-14.5) 07/05/18 05:20 Plt Count 93 K/uL (130-400) L D 07/05/18 05:20 MPV 8.3 fl (7.2-11.7) 07/03/18 21:42 Neut % (Auto) 74.4 % (50.0-75.0) 07/03/18 21:42 Lymph % (Auto) 20.2 % (20.0-40.0) 07/03/18 21:42 [place] % (Auto) 4.5 % (0.0-10.0) 07/03/18 21:42 Eos % (Auto) 0.1 % (0.0-4.0) 07/03/18 21:42 Baso % (Auto) 0.8 % (0.0-2.0) 07/03/18 21:42 Neut # (Auto) 4.9 K/uL (1.8-7.0) 07/03/18 21:42 Lymph # (Auto) 1.3 K/uL (1.0-4.3) 07/03/18 21:42 [place] # (Auto) 0.3 K/uL (0.0-0.8) 07/03/18 21:42 Eos # (Auto) 0.0 K/uL (0.0-0.7) 07/03/18 21:42 Baso # (Auto) 0.1 K/uL (0.0-0.2) 07/03/18 21:42 Sodium 136 mmol/l (132-148) 07/05/18 05:20 Potassium 3.1 MMOL/L (3.6-5.0) L 07/05/18 05:20 Chloride 98 mmol/L (98-107) 07/05/18 05:20 Carbon Dioxide 28 mmol/L (22-30) 07/05/18 05:20 Anion Gap 13 (10-20) 07/05/18 05:20 BUN 3 mg/dl (9-20) L 07/05/18 05:20 Creatinine 0.5 mg/dl (0.8-1.5) L 07/05/18 05:20 Est GFR ( Amer) > 60 07/05/18 05:20 Est GFR (Non-Af Amer) > 60 07/05/18 05:20 POC Glucose (mg/dL) 172 mg/dL (65-110) H 07/03/18 20:37 Random Glucose 154 mg/dL (75-110) H 07/05/18 05:20 Calcium 7.8 mg/dL (8.4-10.2) L 07/05/18 05:20 Phosphorus 1.7 mg/dl (2.5-4.5) L 07/05/18 05:20 Magnesium 1.6 MG/DL (1.6-2.3) 07/05/18 05:20 Total Bilirubin 1.0 mg/dl (0.2-1.3) 07/05/18 05:20 AST 329 U/L (17-59) H 07/05/18 05:20 ALT 224 U/L (21-72) H 07/05/18 05:20 Alkaline Phosphatase 87 U/L (38-126) 07/05/18 05:20 Ammonia 23 umo/L (16-60) 07/03/18 21:42 Total Protein 6.8 G/DL (6.3-8.2) 07/05/18 05:20 Albumin 3.6 g/dL (3.5-5.0) 07/05/18 05:20 Globulin 3.1 gm/dL (2.2-3.9) 07/05/18 05:20 Albumin/Globulin Ratio 1.2 (1.0-2.1) 07/05/18 05:20 Urine Color Yellow (YELLOW) 07/04/18 01:16 Urine Clarity Slighty-cloudy (Clear) 07/04/18 01:16 Urine pH 6.0 (5.0-8.0) 07/04/18 01:16 Ur Specific [place] 1.023 (1.003-1.030) 07/04/18 01:16 Urine Protein >=500 mg/dL (NEGATIVE) 07/04/18 01:16 Urine Glucose (UA) Neg mg/dL (Normal) 07/04/18 01:16 Urine Ketones 20 mg/dL (NEGATIVE) 07/04/18 01:16 Urine Blood Moderate (NEGATIVE) 07/04/18 01:16 Urine Nitrate Negative (NEGATIVE) 07/04/18 01:16 Urine Bilirubin Negative (NEGATIVE) 07/04/18 01:16 Urine Urobilinogen 0.2-1.0 mg/dL (0.2-1.0) 07/04/18 01:16 Ur Leukocyte Esterase Neg Jordi/uL (Negative) 07/04/18 01:16 Urine RBC (Auto) < 1 /hpf (0-3) 07/04/18 01:16 Urine Microscopic WBC 1 /hpf (0-5) 07/04/18 01:16 Urine Bacteria Rare (<OCC) 07/04/18 01:16 Hyaline Casts 3-5 /hpf (0-2) H 07/04/18 01:16 Granular Casts (Auto) 4 /lpf (0-1) 07/04/18 01:16 Urine Opiates Screen Negative (NEGATIVE) 07/04/18 01:16 Urine Methadone Screen Negative (NEGATIVE) 07/04/18 01:16 Ur Barbiturates Screen Negative (NEGATIVE) 07/04/18 01:16 Ur Phencyclidine Scrn Negative (NEGATIVE) 07/04/18 01:16 Ur Amphetamines Screen Negative (NEGATIVE) 07/04/18 01:16 U Benzodiazepines Scrn Negative (NEGATIVE) 07/04/18 01:16 U Oth Cocaine Metabols Negative (NEGATIVE) 07/04/18 01:16 U Cannabinoids Screen Negative (NEGATIVE) 07/04/18 01:16 Alcohol, Quantitative 171 mg/dl (0-10) H 07/04/18 07:37 - Hospital Course Hospital Course: 43 years old male with no significant past medical hx was brought to the ED by his mother because he had not been sleeping for the last few days due to cocaine and has not been acting his usual self as when intoxicated, and not recognizing people that he knew. The patient had been drinking Alcohol daily for the past week. The patient confirms that he drinks Alcohol daily and uses cocaine. No headache, dizziness, nausea, vomits, chest pain nor palpitation. No abdominal pain. In the ED his Alcohol level was 416 and his heart rate is close to 100/min when asleep but increases to 140s when awake. Patient was placed under observation in telemetry for alcohol intoxication and impending DT-s, started on IVf, Ativan , librium , thiamin eand folic acid . psychiatry was also consulted for possible depression and recommended outpatient detox program. At presemnt patient is hemodynamically stable, afebrile, AAOx3 , mother bedside. answering all questions appropriately , denies any discomfort. Patient counselled on ETOH and cocaine abuse.SW was consulted and provided patient with information about detox programs. Will discharge patient home in stable conditions. 1. Alcohol intoxication with alcoholism / impending DT-s treated with IVF, librium , ativan, Thimaine , folic acid stable , no DT-s Counselled on ETOH abuse 2. Transaminitis most likely related to ETOH abuse 3.Substance abuse cocaine and ETOh abuse Referred to social work to help enroll in detox for substance abuse treatment, patient in agreement with plan. 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 4. Electrolyte abnormalities Hypocalcemia, Hypokalemia Replaced with IV formulations Discharge Exam - Head Exam Head Exam: ATRAUMATIC, NORMAL INSPECTION, NORMOCEPHALIC - Eye Exam Eye Exam: EOMI, PERRL Pupil Exam: NORMAL ACCOMODATION - ENT Exam ENT Exam: Mucous Membranes Moist, Normal Exam - Neck Exam Neck exam: Full Rom, Normal Inspection - Respiratory Exam Respiratory Exam: Clear to PA & Lateral, NORMAL BREATHING PATTERN. absent: Rales, Rhonchi, Wheezes - Cardiovascular Exam Cardiovascular Exam: REGULAR RHYTHM, RRR, +S1, +S2. absent: JVD - GI/Abdominal Exam GI & Abdominal Exam: Normal Bowel Sounds, Soft. absent: Distended, Guarding, Rebound, Tenderness - Rectal Exam Rectal Exam: Deferred - Extremities Exam Extremities exam: normal capillary refill, normal inspection, pedal pulses present - Back Exam Back exam: NORMAL INSPECTION - Neurological Exam Neurological exam: Alert, CN II-XII Intact, Oriented x3, Reflexes Normal - Psychiatric Exam Psychiatric exam: Normal Affect - Skin Skin Exam: Dry, Normal Color, Warm Discharge Plan - Follow Up Plan Condition: STABLE Disposition: HOME/ ROUTINE Patient education suggested?: Yes Instructions: Dehydration, Adult (DC), Alcohol Withdrawal (DC), Tachycardia (DC ) Additional Instructions: follow up with 07/11/18 3:20pm follow up with outpatient detox Referrals: [facility] [Outside]
== END 2018-07-05 15:12 | disposition home or self-care (01) ==
LOC: H.ER 20:27 → H.ERHOLD 07-04 05:01 → MERGE 07-04 05:01 → H.TEL 07-04 06:34
PROVIDERS: ADMIT Internal Medicine; ATTEND Internal Medicine
DX: F10.231 Alcohol dependence with withdrawal delirium (principal); Y90.8 Blood alcohol level of 240 mg/100 ml or more; F10.229 Alcohol dependence with intoxication, unspecified; E86.0 Dehydration; R00.0 Tachycardia, unspecified; Z87.891 Personal history of nicotine dependence; R74.0 Nonspecific elevation of levels of transaminase and lactic acid dehydrogenase [LDH]; F14.10 Cocaine abuse, uncomplicated; E83.51 Hypocalcemia; E87.6 Hypokalemia
CPT/HCPCS: 36415; 70450; 71045; 80053; 81003; 82140; 82948; 83735; 84100; 85025; 85027; 93005; 96360; 96372; 96374; 99285; G0378; G0480; J0610; J1630; J1650; J2060; J3411; J7030; J7042

== ENCOUNTER 2018-08-31 18:21 | Emergency (ER) | payer MEDICAID ==
[2018-08-31 18:21] VITALS: BMI 27.4
--- NOTE | 2018-08-31 20:40 | ED PDOC ---
HPI: Psych/Substance Abuse Time Seen by Provider: 08/31/18 20:12 Chief Complaint (Nursing): Alcohol Ingestion Chief Complaint (Provider): Alcoholism History Per: Patient, Super[employer] ([id number]) History/Exam Limitations: no limitations Additional Complaint(s): 43 year old male presents to the ED requesting info for detox. Patient states he abuses alcohol and cocaine and claims last drug use was 3 days ago and last drink was last night. Denies suicidal ideation, homicidal ideation, or hallucinations. No physical complaints. PMD: none Past Medical History Reviewed: Historical Data, Nursing Documentation, Vital Signs Vital Signs: Last Vital Signs Temp 97.1 F L 08/31/18 18:52 Pulse 114 H 08/31/18 18:52 Resp 20 08/31/18 18:52 BP 155/113 H 08/31/18 18:52 Pulse Ox 100 08/31/18 18:52 - Medical History PMH: Anxiety, Depression Other PMH: alcohol abuse - Surgical History Other surgeries: ORIF right hand - Family History Family History: States: Unknown Family Hx - Social History Current smoker - smoking cessation education provided: No Ex-Smoker (has not smoked in the last 12 months): Yes (Quit using tobacco 3 years ago) Alcohol: Other (Daily) Drugs: Cannabis, Cocaine - Home Medications Home Medications: Ambulatory Orders Medication Instructions Recorded Fenofibrate Nanocrystallized 48 mg PO DAILY #30 tablet 12/06/17 [Tricor] RX: Aspirin [Aspirin Chewable] 81 mg PO DAILY chew 12/06/17 RX: Fenofibrate [Tricor] 48 mg PO DAILY tab 12/06/17 RX: Multimineral/Multivitamin 1 tab PO DAILY tab 12/06/17 [Therapeutic-M Tab] RX: Yftgj-0-Gipz Ethyl Esters 1 GM 2 gm PO BID #60 sgl 12/06/17 [Lovaza] RX: Unobtainable 07/04/18 - Allergies Allergies/Adverse Reactions: Allergies Allergy/AdvReac Type Severity Reaction Status Date / Time No Known Allergies Allergy Unverified 09/01/18 11:35 Review of Systems ROS Statement: Except As Marked, All Systems Reviewed And Found Negative Psych: Positive for: Other (alcohol and drug abuse) Physical Exam - Reviewed Nursing Documentation Reviewed: Yes Vital Signs Reviewed: Yes - Physical Exam Comments: GENERAL APPEARANCE: Patient is awake, alert, oriented x 3, in no acute distress. SKIN: Warm, dry; (-) cyanosis ENMT: Mucous membranes moist. Airway patent: (-) stridor. NECK: Supple, FROM HEART AND CARDIOVASCULAR: (-) irregularity CHEST AND RESPIRATORY: (-) rales, (-) rhonchi, (-) wheezes; breath sounds equal. Respirations even and nonlabored. ABDOMEN: Soft, (-) distention, (-) tenderness, (-) guarding. NEURO AND PSYCH: Mental status as above. Affect: flat. 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 Pupils equal and reactive; EOMI and painless; (-) facial asymmetry. Gait steady, speech clear. 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 -Re-evaluation 2039 Repeat HR: 102 Repeat BP: 153/83 Patient provided with outpatient detox resources. Given patient is AAOx3 and is ambulatory in ED with a steady gait, patient appropriate for discharge and follow up as directed. On exam, lungs CTA, cardiac RRR, abdomen soft, nontender, repeat neuro exam shows no focal findings. Lab/Diagnostic results d/w with the patient in great detail. Diagnosis of alcohol and cocaine abuse d/w patient. Based on history, exam, and diagnostic results, plan will be for outpatient follow up. Patient instructed to follow up with PMD / referral provided / the clinic in 1-2 days without fail. Return to the emergency room at any time for any new or worsening symptoms. Patient states he agrees with and understandings discharge instructions. States that he agrees with the plan and disposition. Verbalized and repeated discharge instructions and plan. I have given the patient opportunity to ask any additional questions. Scribe Attestation: Documented by Elvis Arguelles acting as a scribe for Makenzie NAYLOR. Provider Scribe Attestation: All medical record entries made by the Scribe were at my direction and personally dictated by me. I have reviewed the chart and agree that the record accurately reflects my personal performance of the history, physical exam, medical decision making, and the department course for this patient. I have also personally directed, reviewed, and agree with the discharge instructions and disposition. Disposition - Clinical Impression Clinical Impression: Alcohol abuse, Drug abuse - Patient ED Disposition Is Patient to be Admitted: No Counseled Patient/Family Regarding: Studies Performed, Diagnosis, Need For Followup - Disposition Referrals: [facility] [Outside] Disposition: Routine/Home Disposition Time: 20:40 Condition: STABLE Additional Instructions: La atencin mdica de emergencia que recibi hoy se dirigi hacia dante sntomas agudos. Si le recetaron un medicamento, llnelo en la farmacia y tmelo segn las indicaciones. Los sntomas pueden tardar varios forrester en resolverse. Regrese al departamento de emergencias si dante sntomas empeoran, no mejoran o si tiene otros problemas. Comunquese con rodríguez mdico / proveedor / clnica referida en 2 forrester para fermin evaluacin adicional. El tratamiento en el departamento de emergencias no puede reemplazar la atencin mdica en curso por parte de un mdico de cabecera fuera del departamento de emergencias. Instructions: Drug Abuse and Drug Addiction (DC), Alcohol Abuse and Alcoholism (DC), Effects of Alcohol on Your Health, Drug Abuse Treatment Forms: [employer] (Yakut) Print Language: [place] ISLANDER - POA Present On Arrival: None
[2018-08-31 20:48] VITALS: BP 153/83; PULSE 102; RESP 18; TEMP 98
[2018-08-31 21:02] VITALS: O2SAT 100
== END 2018-08-31 20:50 | disposition home or self-care (01) ==
LOC: H.ER 18:21
DX: F10.20 Alcohol dependence, uncomplicated (principal); F14.10 Cocaine abuse, uncomplicated

== ENCOUNTER 2018-09-02 10:47 | Emergency (ER) | payer MEDICAID, SELFPAY ==
[2018-09-02 10:49] VITALS: BMI 26.6
[2018-09-02 11:17] VITALS: O2SAT 100
[2018-09-02] MEDS ORDERED: Multivitamin (MVI) 10 ML, Thiamine 100 MG, Folic Acid 1 MG in Dextrose 5%/0.45% NS 1,00... IV ONE (11:29)
[2018-09-02 11:58] LABS: BASO # 0.1 K/uL (0.0-0.2); BASO % 1.1 % (0.0-2.0); HEMOGLOBIN 14.3 g/dL (12.0-18.0); LYMPH # 2.1 K/uL (1.0-4.3); LYMPH % 45.1 % (20.0-40.0); MEAN CELL VOLUME 88.6 fl (80.0-94.0); MEAN CORPUSCULAR HEMOGLOBIN 30.2 pg (27.0-31.0); MEAN CORPUSCULAR HGB CONC 34.1 g/dL (33.0-37.0); MEAN PLATELET VOLUME 8.1 fl (7.2-11.7); MONO # 0.4 K/uL (0.0-0.8); MONO % 7.9 % (0.0-10.0); NEUT # 2.1 K/uL (1.8-7.0); NEUT % 44.9 % (50.0-75.0); RBC 4.72 Mil/uL (4.40-5.90); RED CELL DISTRIBUTION WIDTH 14.9 % (11.5-14.5); WHITE BLOOD COUNT 4.8 K/uL (4.8-10.8)
[2018-09-02 12:08] LABS: ALB/GLOB RATIO 1.1 (1.0-2.1); ALBUMIN 4.6 g/dL (3.5-5.0); ALT/SGPT 142 U/L (21-72); AST/SGOT 202 U/L (17-59); BLOOD UREA NITROGEN 10 mg/dl (9-20); GFR NON-AFRICAN AMERICAN > 60; LIPASE 322 U/L (23-300)
[2018-09-02 12:19] LABS: PROTHROMBIN TIME 11.1 Seconds (9.8-13.1)
[2018-09-02 12:22] LABS: PARTIAL THROMBOPLASTIN TIME 34.3 Seconds (25.6-37.1)
--- NOTE | 2018-09-02 12:26 | ED PDOC ---
HPI: Psych/Substance Abuse Time Seen by Provider: 09/02/18 10:51 Chief Complaint (Nursing): Alcohol Ingestion History Per: Patient, [place] ([id number]) Additional Complaint(s): Pt. states for the past 5 days he's had blood tinged vomitus associated with epigastric abdominal pain. States he drinks daily and also uses cocaine. Last cocaine use was 4-5 days ago. Pt. states he had a BM this morning which was normal. Denies chest pain, SOB, hemoptysis, fever, SI/HI, hallucinations, hx of GI bleed. Past Medical History Reviewed: Historical Data, Nursing Documentation, Vital Signs Vital Signs: Last Vital Signs Temp 98.7 F 09/02/18 10:49 Pulse 97 H 09/02/18 11:17 Resp 13 09/02/18 11:17 BP 119/85 09/02/18 11:17 Pulse Ox 100 09/02/18 11:17 - Medical History PMH: Anxiety, Depression Denies: HIV, Chronic Kidney Disease - Family History Family History: States: No Known Family Hx - Immunization History Hx Tetanus Toxoid Vaccination: (unk) Hx Influenza Vaccination: Yes (2017) Hx Pneumococcal Vaccination: (unk) - Home Medications Home Medications: Ambulatory Orders Medication Instructions Recorded Fenofibrate Nanocrystallized 48 mg PO DAILY #30 tablet 12/06/17 [Tricor] RX: Aspirin [Aspirin Chewable] 81 mg PO DAILY chew 12/06/17 RX: Fenofibrate [Tricor] 48 mg PO DAILY tab 12/06/17 RX: Multimineral/Multivitamin 1 tab PO DAILY tab 12/06/17 [Therapeutic-M Tab] RX: Uuvbl-2-Gaek Ethyl Esters 1 GM 2 gm PO BID #60 sgl 12/06/17 [Lovaza] RX: Unobtainable 07/04/18 - Allergies Allergies/Adverse Reactions: Allergies Allergy/AdvReac Type Severity Reaction Status Date / Time No Known Allergies Allergy Unverified 09/01/18 11:35 Review of Systems ROS Statement: Except As Marked, All Systems Reviewed And Found Negative Gastrointestinal: Positive for: Nausea, Vomiting, Abdominal Pain, Hematemesis Physical Exam - Physical Exam Appears: Positive for: Well, Non-toxic, No Acute Distress Skin: Positive for: Normal Color, Warm, Rash Eye Exam: Positive for: Normal appearance, EOMI, PERRL. Negative for: Scleral icterus ENT: Positive for: Normal ENT Inspection Cardiovascular/Chest: Positive for: Regular Rate, Rhythm Respiratory: Positive for: Normal Breath Sounds. Negative for: Respiratory Distress Gastrointestinal/Abdominal: Positive for: Normal Exam, Bowel Sounds, Soft. Negative for: Tenderness, Distended, Guarding, Asicites Back: Positive for: Normal Inspection. Negative for: L CVA Tenderness, R CVA Tenderness Neurologic/Psych: Positive for: Alert, Oriented (x3) - Laboratory Results Result Diagrams: 09/02/18 11:50 09/02/18 11:50 - ECG ECG: Positive for: Interpreted By Me ECG Rhythm: Positive for: Sinus Rhythm. Negative for: ST/T Changes Rate: 90 O2 Sat by Pulse Oximetry: 100 - Radiology X-Ray: Interpreted by Me (CXR) X-Ray Interpretation: No Acute Disease - Progress ED Course And Treament: Labs, banana bag IV, zofran 4mg IV, protonix 80mg IVP, abd US ordered. 1230 Pt. attempting to leave with IV in place and uncooperative during US. Pt. refusing to cooperate. Ativan 2mg IV ordered. 1530 On re-evaluation, pt. sleeping comfortably. No distress. 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 AAOx3. Seen eating. Reports feeling much better. Informed that [facility] does not offer ETOH detox. States he has outpt. referrals form his [facility] ED visit yesterday at his home. Denies SI/HI, hallucinations, chest pain, SOB, abdominal pain, nausea. Gait steady unassisted, no slurred speech. Abd soft and non-tender to deep palpation. No tremors noted. Disposition - Clinical Impression Clinical Impression: Alcohol abuse with intoxication, Vomiting - Patient ED Disposition Is Patient to be Admitted: No - Disposition Disposition: Routine/Home Disposition Time: 17:28 Condition: IMPROVED Instructions: Nausea and Vomiting, Adult (DC), Alcohol Abuse and Alcoholism (DC) Forms: [employer] (Finnish)
--- NOTE | 2018-09-02 12:44 | US ---
Date of service: 09/02/2018 HISTORY: epigastric pain COMPARISON: None. TECHNIQUE: Sonographic evaluation of the right upper quadrant of the abdomen. FINDINGS: LIVER: Measures 17.3 cm in length. Increased echogenicity of the liver parenchyma. No mass. No intrahepatic bile duct dilatation. GALLBLADDER: Unremarkable. No gallstones. COMMON BILE DUCT: Measures 4.9 mm. No stones. No dilatation. PANCREAS: Partial obscured by overlying bowel gas, otherwise unremarkable as visualized. No mass. No ductal dilatation. RIGHT KIDNEY: Measures 10.6 x 4.7 x 4.3 cm in length. Normal echogenicity. No calculus, mass, or hydronephrosis. AORTA: No aneurysmal dilatation. IVC: Unremarkable. OTHER FINDINGS: None . IMPRESSION: Mild hepatomegaly with findings suggestive of [id number] hepatic steatosis. No evidence of cholelithiasis or cholecystitis.
--- NOTE | 2018-09-02 16:55 | CARD ---
APPROVED REPORT Date of service: 09/02/2018 EKG Measurement Heart [id number] <Conclusion> Normal sinus rhythm Normal Electrocardiogram
[2018-09-02] MEDS ORDERED: Sodium Chloride 0.9% 1,000 ML IV STA (17:14)
--- NOTE | 2018-09-02 17:47 | RAD ---
Date of service: 09/02/2018 HISTORY: vomiting COMPARISON: Comparison is made with 07/04/2018 FINDINGS: LUNGS: No active pulmonary disease. PLEURA: No significant pleural effusion identified, no pneumothorax apparent. CARDIOVASCULAR: Normal. OSSEOUS STRUCTURES: No significant abnormalities. VISUALIZED UPPER ABDOMEN: Normal. OTHER FINDINGS: None. IMPRESSION: No active disease.
[2018-09-02 18:04] VITALS: BP 126/94; RESP 15; TEMP 98.5
[2018-09-02 18:07] VITALS: PULSE 90
== END 2018-09-02 18:10 | disposition home or self-care (01) ==
LOC: H.ER 10:47
DX: F10.129 Alcohol abuse with intoxication, unspecified (principal); R11.10 Vomiting, unspecified
CPT/HCPCS: 71045; 76705; 80053; 80320; 82948; 83690; 85025; 85610; 85730; 86850; 86900; 93005; 96365; 96366; 96375; 99285; C9113; J2060; J2405; J3411; J7030; J7042

== ENCOUNTER 2018-11-29 03:08 | Emergency (ER) | payer MEDICAID, SELFPAY ==
[2018-11-29 03:09] VITALS: BMI 26.6
[2018-11-29 03:21] VITALS: TEMP 98.4
--- NOTE | 2018-11-29 03:44 | ED PDOC ---
HPI: Psych/Substance Abuse Time Seen by Provider: 11/29/18 03:14 Chief Complaint (Nursing): Alcohol Ingestion Chief Complaint (Provider): Alcohol Ingestion ED Caveat: Intoxicated History/Exam Limitations: intoxication Modifying Factor(s): Alcohol Additional Complaint(s): 43 y/o male presents to the ED for public intoxication. History is limited due to alcohol intoxication. On arrival to ED patient has no medical complaints. Past Medical History Reviewed: Unable To Obtain Vital Signs: Last Vital Signs Temp 98.4 F 11/29/18 03:12 Pulse 131 H 11/29/18 03:12 Resp 18 11/29/18 03:12 BP 126/84 11/29/18 03:12 Pulse Ox 98 11/29/18 03:12 - Medical History PMH: Anxiety, Depression Denies: HIV, Chronic Kidney Disease - Family History Family History: States: Unknown Family Hx - Social History Drugs: Cocaine - Immunization History Hx Tetanus Toxoid Vaccination: (unk) Hx Influenza Vaccination: Yes (2018) Hx Pneumococcal Vaccination: (unk) - Home Medications Home Medications: Ambulatory Orders Medication Instructions Recorded Fenofibrate Nanocrystallized 48 mg PO DAILY #30 tablet 12/06/17 [Tricor] RX: Aspirin [Aspirin Chewable] 81 mg PO DAILY chew 12/06/17 RX: Fenofibrate [Tricor] 48 mg PO DAILY tab 12/06/17 RX: Multimineral/Multivitamin 1 tab PO DAILY tab 12/06/17 [Therapeutic-M Tab] RX: Ityzq-9-Qeft Ethyl Esters 1 GM 2 gm PO BID #60 sgl 12/06/17 [Lovaza] RX: Unobtainable 07/04/18 - Allergies Allergies/Adverse Reactions: Allergies Allergy/AdvReac Type Severity Reaction Status Date / Time No Known Allergies Allergy Unverified 09/01/18 11:35 Review of Systems Review Of Systems: ROS cannot be obtained secondary to pt's inabilty to answer questions. Physical Exam - Reviewed Nursing Documentation Reviewed: Yes Vital Signs Reviewed: Yes - Physical Exam Appears: Positive for: Well, Non-toxic, No Acute Distress Head Exam: Positive for: ATRAUMATIC, NORMOCEPHALIC Skin: Positive for: Normal Color, Warm, Dry Eye Exam: Positive for: EOMI, Normal appearance, PERRL Cardiovascular/Chest: Positive for: Regular Rate, Rhythm, Tachycardia Respiratory: Positive for: Normal Breath Sounds. Negative for: Respiratory Distress Gastrointestinal/Abdominal: Positive for: Normal Exam, Soft. Negative for: Tenderness Back: Positive for: Normal Inspection. Negative for: L CVA Tenderness, R CVA Tenderness, Vertebral Tenderness Extremity: Positive for: Normal ROM. Negative for: Pedal Edema, Deformity Neurologic/Psych: Positive for: Alert, Oriented. Negative for: Motor/Sensory Deficits, Aphasia (slurred speech) - ECG O2 Sat by Pulse Oximetry: 98 (RA) Pulse Ox Interpretation: Normal Medical Decision Making Medical Decision Making: Time: 03:33 Initial Impression: 43 y/o male with public intoxication Initial Plan: * EKG * Alcohol serum * Drug screen 05:05 Patient was being uncooperative and requires restraint. 4 point restraints ordered along with Ativan and Haldol. 07:00 Patient care endorsed to Dr. Begum pending clinical sobriety and reevaluation. Scribe Attestation: Documented by Juan Asher acting as a scribe for Oz Zabala MD. Provider Scribe Attestation: All medical record entries made by the Scribe were at my direction and personally dictated by me. I have reviewed the chart and agree that the record accurately reflects my personal performance of the history, physical exam, medical decision making, and the department course for this patient. I have also personally directed, reviewed, and agree with the discharge instructions and disposition. Disposition - Clinical Impression Clinical Impression: Alcohol abuse with alcohol-induced disorder - Patient ED Disposition Is Patient to be Admitted: Transfer of Care - Disposition Disposition: Transfer of Care Disposition Time: 07:00 Condition: STABLE Instructions: Alcohol Use - When Is Drinking a Problem? Forms: [employer] (Setswana) Print Language: SYRIAN Patient Signed Over To: Joao Begum III (pending sobriety)
--- NOTE | 2018-11-29 07:07 | ED PDOC ---
- ECG O2 Sat by Pulse Oximetry: 95 Medical Decision Making Medical Decision Makinpm patient ate lunch, clear speech, cooperative without complaints. DC from ED. Disposition - Clinical Impression Clinical Impression: Alcohol abuse with alcohol-induced disorder - POA Present On Arrival: None - Disposition Disposition: Routine/Home Disposition Time: 13:15 Condition: STABLE Instructions: Alcohol Use - When Is Drinking a Problem? Forms: [employer] (Bangladeshi) Print Language: TURKMEN
[2018-11-29 13:58] VITALS: BP 115/69; PULSE 69; RESP 18
--- NOTE | 2018-11-29 20:45 | CARD ---
APPROVED REPORT Date of service: 11/29/2018 EKG Measurement Heart [id number] <Conclusion> Normal sinus rhythm Prolonged QT Abnormal ECG
[2018-11-29 22:24] VITALS: O2SAT 98
== END 2018-11-29 13:57 | disposition home or self-care (01) ==
LOC: H.ER 03:08
DX: F10.129 Alcohol abuse with intoxication, unspecified (principal); R00.0 Tachycardia, unspecified
CPT/HCPCS: 80320; 93005; 96372; 99285; J1630; J2060